=== PATIENT | female | born 1990 | race Caucasian/White ===

== ENCOUNTER 2018-06-10 18:06 | Emergency (ER) | payer OTHER ==
[~2018-06-10] VITALS: Ht 162.6 cm; Wt 83.2 kg
[2018-06-10 18:10] VITALS: BP 124/74
[2018-06-10 18:41] VITALS: BP 124/74
== END 2018-06-10 18:42 | disposition home or self-care (01) ==
LOC: MED 18:06
DX: S29.012A Strain of muscle and tendon of back wall of thorax, initial encounter (principal); B34.9 Viral infection, unspecified; Z90.49 Acquired absence of other specified parts of digestive tract; X58.XXXA Exposure to other specified factors, initial encounter; Y93.89 Activity, other specified; Y92.89 Other specified places as the place of occurrence of the external cause; Y99.8 Other external cause status
CPT/HCPCS: 81002; 81025; 99283